=== PATIENT | female | born 1990 | race Hispanic/Latino ===

== ENCOUNTER 2017-11-17 09:32 | Day surgery (SDC) | payer OTHER ==
[2017-11-17 10:26] VITALS: BP 107/60; TEMP 98.4; BMI 26.6
--- NOTE | 2017-11-17 10:44 | PDOC.LDHP ---
Labor and Delivery H&P Chief complaint: other (loose stool x 2 days) HPI: PLEASE SEE FULL HANDWRITTEN H&P IN CHART 27 yo multigravida with 2 prior SVDs here for loose stools/diarrhea. Non-bloddy , no cramping, no fevers. No real contractions. No VB no LOF Sees Dr Bergman at the [facility]. review of systems: completed and as per HPI Current gestational age (weeks): 31 (6) Dating criteria: last menstrual period Grav: 3 Para: 2 (Last 7 years ago) Current complications: other (HX recurrent UTI on macrobid now) Current medications: pre- vitamins, other (Macrobid) Previous surgical history: none Allergies/Adverse Reactions: Allergies Allergy/AdvReac Type Severity Reaction Status Date / Time No Known Allergies Allergy Verified 11/17/17 10:10 Social history: none - Physical Exam Vital signs reviewed and normal: yes General: NAD Heart: RRR Lungs: CTAB Abdomen: gravid Extremeties: no edema FHT: category 1 [place] contractions every: irritability - Assessment 30 weeks 6 days with gastroenteritis - Plan Plan: other (Observe in L&D; Monitors; IVF with LR; Kaopectate;CMP (PLEASE SEE HANDWRITTEN NOTE))
[2017-11-17] MEDS ORDERED: Lactated Ringer's 1,000 ML IV SCH (10:45)
[2017-11-17 11:44] LABS: ALT (SGPT) 18 U/L (8-55); AST (SGOT) 28 U/L (5-34); Albumin 3.6 g/dL (3.5-5.0); Alkaline Phosphatase 126 U/L (40-150); Anion Gap 14 mmol/L (10-20); BUN (Urea Nitrogen) 6 mg/dL (7.0-18.7); Bilirubin, Total 0.6 mg/dL (0.2-1.2); Calc. Creatinine Clearance 157 mL/min (70-130); Calcium 8.5 mg/dL (7.8-10.44); Carbon Dioxide 19 mmol/L (22-29); Chloride 106 mmol/L (98-107); Estimated GFR-MDRD Greater than 90; Globulin 2.6 g/dL (2.4-3.5); Glucose 83 mg/dL (70-105); Potassium 3.7 mmol/L (3.5-5.1); Protein, Total 6.2 g/dL (6.0-8.3); Sodium 135 mmol/L (136-145)
--- NOTE | 2017-11-17 11:57 | PDOC.EVN ---
Event Note - Event Note Event Note: Late entry: I checked the patient;s cervix around 30 minutes ago: cervix closed. Although kaopectate has bismuth..I ordered a one time dose for her for symptoms. No further doses will be recommended, as discussed with her. Also told to avoid peptobismol. CMP pending.
--- NOTE | 2017-11-17 11:57 | PDOC.EVN ---
Event Note - Event Note Event Note: CMP WNL
--- NOTE | 2017-11-17 12:08 | PDOC.EVN ---
Event Note - Event Note Event Note: OK for discharge as cervix closed and CMP normal. Afebrile. BRAT diet discussed with her. Avoid bismuth meds after today's single dose.
== END 2017-11-17 12:20 | disposition home or self-care (01) ==
LOC: L&D/OP 09:32
PROVIDERS: ATTEND Family Medicine
DX: O99.613 Diseases of the digestive system complicating pregnancy, third trimester (principal); K52.9 Noninfective gastroenteritis and colitis, unspecified; Z3A.30 30 weeks gestation of pregnancy
CPT/HCPCS: 59025; 80053; 96360; 99284

== ENCOUNTER 2022-01-09 06:54 | Outpatient (CLI) | payer BC | END 2022-01-09 06:55 | disposition home or self-care (01) | LOC: BICULT 06:54 | PROVIDERS: ATTEND Surgery | DX: K80.20 Calculus of gallbladder without cholecystitis without obstruction (principal) | CPT/HCPCS: 76705 ==

== ENCOUNTER 2023-06-17 13:15 | Emergency (ER) | payer BC ==
[2023-06-17] MEDS ORDERED: predniSONE 20 MG TAB ONE ×2 (13:36→13:39)
[2023-06-17 14:18] LABS: SARS-CoV-2 NAA Rapid Test Not Detected (NotDetected)
== END 2023-06-17 14:58 | disposition home or self-care (01) ==
LOC: ERS 13:15
DX: J10.1 Influenza due to other identified influenza virus with other respiratory manifestations (principal)
CPT/HCPCS: 71045; 87081; 87430; J7512